=== PATIENT | female | born 1965 | race Caucasian/White ===

== ENCOUNTER 2019-08-15 09:31 | Outpatient (CLI) | payer MEDICAID, SELFPAY ==
--- NOTE | 2019-08-15 09:15 | DI.RAD_ITS ---
EXAM: XR HIP RT COMPLETE AP PELVIS CLINICAL HISTORY: HIP PAIN TECHNIQUE: COMPARISON: No exams were available for comparison FINDINGS: Two views were obtained. Cartilaginous joint spaces of hips may be slightly narrowed superiorly. Mi nimal calcific or ossific radiodensities seen adjacent to the lateral aspect of acetabulum on the rig ht. Small osteophytes noted at the greater trochanters of the femurs bilaterally. No other signific ant bony abnormality seen. IMPRESSION: mild DJD both hips
--- NOTE | 2019-08-15 09:30 | DI.RAD_ITS ---
EXAM: XR LUMBAR SPINE COMPLETE CLINICAL HISTORY: pain COMPARISON: No exams were available for comparison FINDINGS: Five views were obtained. There is mild loss of disc height at L4-5. There are prominent hypertroph ic facet changes at L3-4, L4-5 and L5-S1. There is mild anterior pseudo spondylolisthesis of L4 on L 5. No spondylolysis seen. Moderate vertebral endplate hypertrophic changes noted at L4-5 and L5-S1. No evidence of a vertebral compression fracture. IMPRESSION: Marked facet arthropathy at L4-5 and L5-S1. Mild anterior pseudo spondylolisthesis of L4 on L5, less than 10 percent of the vertebral width.
== END 2019-08-15 09:51 ==
PROVIDERS: Visit Provider Student in an Organized Health Care Education/Training Program
DX: M25.551 Pain in right hip (principal); M16.0 Bilateral primary osteoarthritis of hip; M54.5 Low back pain; M47.817 Spondylosis without myelopathy or radiculopathy, lumbosacral region; M43.16 Spondylolisthesis, lumbar region
CPT/HCPCS: 72110; 73502

== ENCOUNTER 2019-09-12 01:54 | Outpatient (CLI) | payer MEDICAID, SELFPAY ==
--- NOTE | 2019-09-12 07:00 | DI.MRI_ITS ---
EXAM: MR LUMBAR SPINE WO CLINICAL HISTORY: LOW BACK PAIN,M48.816,DJD, SPONDYLOSIS WITHOUT MYELOPATHY. TECHNIQUE: Multiplanar multisequence MRI was performed. COMPARISON: XR LUMBAR SPINE COMPLETE from 08/15/2019 FINDINGS: The vertebral bodies are well maintained in height. Conus medullaris appears normal. The T12-L1 and L1-2 discs show normal height and hydration. There is mild disc bulging at L2-3 and mild facet degenerative changes. At L3-4, there is broad-base d disc bulging. There are facet degenerative changes and ligamentous hypertrophy combining to produc e a moderate degree of central canal stenosis. There is mild left neural foraminal narrowing. At L4-5, there is also broad-based disc bulging and mild loss of disc height. There are prominent fa cet degenerative changes as well as ligamentous hypertrophy combining to produce moderate to severe c entral canal stenosis. There is moderate bilateral neural foraminal narrowing. There is mild spondy lolisthesis secondary to facet degenerative changes. There is a small facet joint cyst seen projecti ng posterior to the low left L4-5 facet joint. The L5-S1 disc shows minimal bulging. There moderate facet degenerative changes. There is mild cent ral canal stenosis. There is no significant neural foraminal narrowing. IMPRESSION: Degenerative change disc changes and prominent facet joint degenerative changes combine to produce a moderate degree of central canal stenosis at L3-4 and moderate to severe degree of central canal yissel nosis at L4-5. Neural foraminal narrowing is also seen at these levels. DATA REPOSITORY:
== END 2019-09-12 02:14 ==
PROVIDERS: PCP Registered Nurse; Visit Provider Student in an Organized Health Care Education/Training Program
DX: M47.816 Spondylosis without myelopathy or radiculopathy, lumbar region (principal); M51.36 Other intervertebral disc degeneration, lumbar region; M54.5 Low back pain
CPT/HCPCS: 72148